=== PATIENT | female | born 1990 | race Asian ===

== ENCOUNTER → 2016-10-15 09:39 | Emergency (ER) | payer BC ==
[~2016-10-15 09:39] MED LIST: Iohexol 300* (CONTRAST) 10 ML SDV IV ONE; Ketorolac INJ* 30 MG/ML 1 ML VIAL IV PUSH ONE
[2016-10-15 11:08] LABS: Hematocrit 37 % (35-47); Hemoglobin 12.2 g/dl (12.0-16.0); Mean Corpuscular HGB Conc 33 g/dl (31-36); Mean Corpuscular Hemoglobin 31 pg (27-31); Mean Corpuscular Volume 93 fL (80-97); Mean Platelet Volume 10 um3 (7.4-10.4); Red Blood Count 3.98 10^6/ul (4.0-5.4); Red Cell Distribution Width 14 % (10.5-15); White Blood Count 6.8 10^3/ul (3.5-10.8)
[2016-10-15 11:21] LABS: ALT 8 U/L (7-52); AST 11 U/L (13-39); Albumin 4.5 g/dL (3.2-5.2); Alkaline Phosphatase 59 U/L (34-104); Anion Gap 5 mmol/L (2-11); BUN/Creatinine Ratio 17.6 (8-20); Blood Urea Nitrogen 9 mg/dL (6-24); C Reactive Protein 1.89 mg/L (< 5.00); CO2 Carbon Dioxide 24 mmol/L (22-32); Calcium 9.2 mg/dL (8.6-10.3); Chloride 106 mmol/L (101-111); EGFR Non-African American 146.9 (>60); Globulin 2.9 g/dL (2-4); Glucose 92 mg/dL (70-100); Lipase 46 U/L (11.0-82.0); Potassium 3.7 mmol/L (3.5-5.0); Sodium 135 mmol/L (133-145); Total Protein 7.4 g/dL (6.4-8.9)
--- NOTE | 2016-10-15 13:14 | RAD ---
INDICATION: Right lower quadrant pain COMPARISON: None TECHNIQUE: Axial source images were obtained from the hemidiaphragms to the symphysis pubis following administration of oral and intravenous contrast. 84 mL Omnipaque 300 was utilized. Coronal and sagittal reconstructed images were acquired. Lung bases: The lung bases are clear. Liver: The liver is normal in size. There are no masses. There is no ductal dilatation. Gallbladder: There are no calcified gallstones. There is no evidence of wall thickening or pericholecystic fluid. Spleen: The spleen is normal in size. There are no masses. Pancreas: There is no focal pancreatic mass or ductal dilatation. Adrenal glands: There is no evidence of adrenal mass. Kidneys: The kidneys are normal in size and position. There are prompt nephrograms and there is prompt excretion bilaterally. There are no renal parenchymal masses. There is no evidence of nephrolithiasis. Adenopathy: There is no evidence of adenopathy by size criteria. Fluid collections: There are no free or localized fluid collections. Vessels:There are no significant atherosclerotic changes involving the aorta. There is no focal aneurysm. The iliac vessels are normal in caliber. The IVC appears normal. GI tract: There are no acute CT bowel findings. There is no obstruction. The stomach and small bowel appear normal. The lower GI tract is remarkable for a large amount retained stool and colonic redundancy. The cecum, ileocecal valve, and terminal ileum appear normal. The appendix is not well evaluated due to posterior fat planes but there is no dilated tubular structure in the right lower quadrant and there is no periappendiceal inflammatory change. Suggest correlation with the clinical presentation for acute appendicitis and if this remains a differential consideration, suggest surgical referral. Pelvic organs: The uterus and adnexa appear normal. Incidental note is made of an IUD Bladder: There are no bladder masses. Abdominal and pelvic soft tissues: The extraperitoneal abdominal and pelvic soft tissues appear normal.. Osseous structures: There are no acute osseous findings. Other: None IMPRESSION: NO ACUTE CT FINDINGS. NO MASS OR INFLAMMATORY CHANGES (SEE ABOVE).
--- NOTE | 2016-10-15 15:00 | RAD ---
Indication: Pelvic pain. Real-time sonography of the pelvis was performed. The uterus measures 8.5 x 4.8 x 6.0 cm. Endometrial echo measures 2 mm[address]. The IUD string is noted in the lower uterine segment. Shadowing echogenic foci is noted on the transverse images suggesting an IUD is in appropriate location. Right ovary measures 4.1 x 2.8 x 3.2 cm. Left ovary measures 3.9 x 2.7 x 3.4 cm. Follicle is noted in the left ovary. IMPRESSION: No adnexal masses are noted. IUD appears to BE in appropriate position.
[2016-10-15 15:48] VITALS: BP 117/62
--- NOTE | 2016-10-15 17:40 | ED ---
Julio Lara Alfonso, scribed for Bhupinder Gonsalves MD on 10/15/16 at 1014 . Abdominal Pain/Female - HPI Summary HPI Summary: This patient is a 26 year old F presenting to [facility] accompanied by and daughter with a chief complaint of RLQ abdominal pain since one month ago. She reports the pain has been worse since 2 days ago. The pain radiates to her back. The CC is described as sharp. Pt rates the pain 6/10 in severity. Symptoms aggravated by eating and alleviated by nothing. Pt reports fever. Pt denies N/V, chills, and dysuria. LNMP on 09/22/16. Pt last ate 2 hours GRIDDLE COOK. Denies PMHx and PSHx. - History of Current Complaint Chief Complaint: EDAbdPain Stated Complaint: RT SIDE ABD PAIN Time Seen by Provider: 10/15/16 09:54 Hx Obtained From: Patient Hx Last Menstrual Period: 09/22/16 Onset/Duration: Gradual Onset, Lasting Weeks - One month, Worse Since - 2 days ago Timing: Constant Severity Initially: Moderate Severity Currently: Moderate Pain Intensity: 6 Pain Scale Used: 0-10 Numeric Location: Discrete At: RLQ Radiates: Yes Radiates to: Back Character: Sharp Aggravating Factor(s): Food Alleviating Factor(s): Nothing Associated Signs and Symptoms: Positive: Fever, Other: - Negative N/V, chills, and dysuria Allergies/Adverse Reactions: Allergies Allergy/AdvReac Type Severity Reaction Status Date / Time No Known Allergies Allergy Verified 05/09/14 09:38 PMH/Surg Hx/FS Hx/Imm Hx Endocrine/Hematology History: Denies: Hx Diabetes, Hx Thyroid Disease Cardiovascular History: Denies: Hx Hypertension Respiratory History: Denies: Hx Asthma, Hx Chronic Obstructive Pulmonary Disease (COPD) GI History: Denies: Hx Ulcer Infectious Disease History: No Infectious Disease History: Denies: Hx Clostridium Difficile, Hx Hepatitis, Hx Human Immunodeficiency Virus (HIV), Hx of Known/Suspected MRSA, Hx Shingles, Hx Tuberculosis, Traveled Outside the [place] in Last 30 Days - Family History Known Family History: Negative: Cardiac Disease - Social History Alcohol Use: None Substance Use Type: Reports: None Smoking Status (MU): Never Smoked Tobacco Have You Smoked in the Last Year: No Review of Systems Positive: Fever. Negative: Chills Positive: Abdominal Pain - RLQ sharp worse since 2 days ago. Negative: Vomiting , Nausea Negative: dysuria All Other Systems Reviewed And Are Negative: Yes Physical Exam - Summary Physical Exam Summary: VITAL SIGNS: Reviewed. GENERAL: Patient is a well-developed and nourished female who is lying comfortable in the stretcher. Patient is not in any acute respiratory distress. HEAD AND FACE: Normocephalic and atraumatic. EYES: PERRLA, EOMI x 2, No injected conjunctiva. EARS: Hearing grossly intact. Ear canals and tympanic membranes are WNL. MOUTH: Oropharynx within normal limits. NECK: Supple, trachea is midline, no adenopathy, no JVD. CHEST: Symmetric, no tenderness at palpation LUNGS: Clear to auscultation bilaterally. No wheezing or crackles. CVS: RRR, S1 and S2 present, no murmurs or gallops appreciated. ABDOMEN: RLQ tenderness. No signs of distention. Positive bowel sounds. No rebound no guarding, and no masses palpated. No abdominal bruit or pulsations. EXTREMITIES: FROM in all major joints, no edema, no cyanosis or clubbing. NEURO: Alert and oriented x 3. No acute neurological deficits. Speech is normal. SKIN: Dry and warm Triage Information Reviewed: Yes Vital Signs On Initial Exam: Initial Vitals Temp Pulse Resp BP Pulse Ox 98.7 F 90 20 114/61 97 10/15/16 09:44 10/15/16 09:44 10/15/16 09:44 10/15/16 09:44 10/15/16 09:44 Vital Signs Reviewed: Yes Diagnostics - Vital Signs Vital Signs Temp Pulse Resp BP Pulse Ox 10/15/16 10:01 99.7 F 100 16 124/68 100 10/15/16 09:44 98.7 F 90 20 114/61 97 - Laboratory Lab Results: Lab Results 10/15/16 10/15/16 10/15/16 Range/Units 10:47 10:47 10:47 WBC 6.8 (3.5-10.8) 10^3/ul RBC 3.98 L (4.0-5.4) 10^6/ul Hgb 12.2 (12.0-16.0) g/dl Hct 37 (35-47) % MCV 93 (80-97) fL MCH 31 (27-31) pg MCHC 33 (31-36) g/dl RDW 14 (10.5-15) % Plt Count 250 (150-450) 10^3/ul MPV 10 (7.4-10.4) um3 Neut % (Auto) 57.1 (38-83) % Lymph % (Auto) 31.8 (25-47) % [place] % (Auto) 6.5 (1-9) % Eos % (Auto) 3.7 (0-6) % Baso % (Auto) 0.9 (0-2) % Absolute Neuts (auto) 3.9 (1.5-7.7) 10^3/ul Absolute Lymphs (auto) 2.1 (1.0-4.8) 10^3/ul Absolute Monos (auto) 0.4 (0-0.8) 10^3/ul Absolute Eos (auto) 0.3 (0-0.6) 10^3/ul Absolute Basos (auto) 0.1 (0-0.2) 10^3/ul Absolute Nucleated RBC 0 10^3/ul Nucleated RBC % 0.1 Sodium 135 (133-145) mmol/L Potassium 3.7 (3.5-5.0) mmol/L Chloride 106 (101-111) mmol/L Carbon Dioxide 24 (22-32) mmol/L Anion Gap 5 (2-11) mmol/L BUN 9 (6-24) mg/dL Creatinine 0.51 (0.51-0.95) mg/dL Est GFR ( Amer) 189.0 (>60) Est GFR (Non-Af Amer) 146.9 (>60) BUN/Creatinine Ratio 17.6 (8-20) Glucose 92 (70-100) mg/dL Lactic Acid 1.0 (0.5-2.0) mmol/L Calcium 9.2 (8.6-10.3) mg/dL Total Bilirubin 0.50 (0.2-1.0) mg/dL AST 11 L (13-39) U/L ALT 8 (7-52) U/L Alkaline Phosphatase 59 (34-104) U/L C-Reactive Protein 1.89 (< 5.00) mg/L Total Protein 7.4 (6.4-8.9) g/dL Albumin 4.5 (3.2-5.2) g/dL Globulin 2.9 (2-4) g/dL Albumin/Globulin Ratio 1.6 (1-3) Lipase 46 (11.0-82.0) U/L Beta HCG, Quant < 0.60 mIU/mL Result Diagrams: 10/15/16 10:47 10/15/16 10:47 Lab Statement: Any lab studies that have been ordered have been reviewed, and results considered in the medical decision making process. - CT CT A/P CT Interpretation Completed By: Radiologist - NO ACUTE CT FINDINGS. NO MASS OR INFLAMMATORY CHANGE - Additional Comments Diagnostic Additional Comments: Transvaginal US: No adnexal masses are noted. IUD appears to BE in appropriate position. Re-Evaluation - Re-Evaluation First Eval Re-Evaluation Time: 13:45 Change: Improved Comment: Patient reports her symptoms have improved in the ED course. Abdominal Pain Fem Course/Dx - Course Course Of Treatment: This patient is a 26 year old F presenting to [facility] accompanied by and daughter with a chief complaint of RLQ abdominal pain since one month ago. She reports the pain has been worse since 2 days ago. The pain radiates to her back. The CC is described as sharp. Pt rates the pain 6 /10 in severity. Symptoms aggravated by eating and alleviated by nothing. Pt reports fever. Pt denies N/V, chills, and dysuria. LNMP on 09/22/16. Pt last ate 2 hours GRIDDLE COOK. Denies PMHx and PSHx. Test results without significant abnormalities. CT A/P reveals NO ACUTE CT FINDINGS. NO MASS OR INFLAMMATORY CHANGE. We decide to do CT to rule out appendicitis because of her RLQ pain. All test results negative, thus I decided to a pelvic US to r/o ovarian cyst or torsion. Test results of US are No adnexal masses are noted IUD appears to BE in appropriate position. The patient was given Toradol for the pain and her symptoms resolved. Pt is feeling much improved. I offered a pelvic exam but patient declined since she has no vaginal bleeding or discharge. She also denies any urinary symptoms. I discussed all the findings and test results with the patient. Patient was instructed to return to the emergency room immediately if any of the symptoms return or worsens. Plan of care was discussed with the patient and understands and agrees. All questions were answered at patient satisfaction. There were no further complaints or concerns. Lung exam before discharge: CTA B/L. Good air exchange. No wheezing or crackles heard. CVS: S1 and S2 present. No murmurs appreciated. Patient is alert and oriented x 3. Patient is hemodynamically stable. Patient will be discharged home with follow up PCP in the next 2-3 days - Diagnoses Differential Diagnosis: Positive: Appendicitis, Bowel Obstruction, Constipation , Ovarian Cyst Provider Diagnoses: Abdominal pain Discharge - Discharge Plan Condition: Stable Disposition: HOME Patient Education Materials: Acute Abdominal Pain (ED) Referrals: [facility] [place] PHYSICIAN REFERRAL [Outside] - 3 Days The documentation as recorded by the Julio bhandari Alfonso accurately reflects the service I personally performed and the decisions made by , Bhupinder Gonsalves MD.
== END | disposition home or self-care (01) ==
LOC: ED 09:39
DX: R10.31 Right lower quadrant pain (principal); R50.9 Fever, unspecified; Z32.02 Encounter for pregnancy test, result negative
CPT/HCPCS: 36415; 74177; 76830; 80053; 83605; 83690; 84702; 85025; 86140; 96374; 99283; J1885; Q9967

== ENCOUNTER 2017-10-24 23:40 | Inpatient (IN) | payer OTHER ==
--- NOTE | 2017-10-25 00:03 | HP ---
General Information - General Information Maternal Age: 27 Grav: 2 Para: 1 Estimated Due Date: 10/31/17 Determined By: LMP Gestational Age in Weeks/Days: 39w 1d Maternal Blood Type and Rh: O Positive - Results this Serology/RPR Result: Non-Reactive Rubella Result: Immune HBsAg Result: Negative HIV Result: Negative GBS Culture Result: Negative Past Medical History Delivery History: Hx Complicated Vaginal Delivery Delivery History Comment: partial 3rd degree lac, PPH with vaginal wall hematoma, required evacuation and repair in OR. Transfusion Pertinent Past Medical History: Non-Contributory Past Surgical History Comment: see above Pertinent Family History: Non-Contributory - Antepartal Records Antepartal Records: Reviewed, Complicated by: - anemia Review of Systems Constitutional: Uncomfortable CV Complaint: No Respiratory: Shortness of Breath: No Gastrointestinal: No Nausea/Vomiting Genitourinary: No Leaking Fluid Musculoskeletal: Contractions, Pressure Neurological: No Headache Movement: Normal Exam Allergies/Adverse Reactions: Allergies No Known Allergies Allergy (Verified 05/09/14 09:38) - Measurements Height: 5 ft 9 in Weight: 196 lb Body Mass Index (BMI): 28.9 Pre- Weight: 152 lb - Exam Breast: - - soft, no masses Extremities: Edema Heart: Normal Rhythm/Heart Sounds HEENT: No Significant Findings Lungs: Clear Bilaterally Reflexes: DTR 2+ Thyroid: No Thyromegaly - Ultrasound/Biophysical Profile Ultrasound Status: Not Done Targeted Exam Findings See L&D Outpatient Visit Provider Note for Findings: N/A Estimated Weight: 7.5 lbs Cervical Exam: 8cm Effacement: 100% Station: 0 Presenting Part: Vertex Membrane Status: Bulging EFM Findings - External Monitor Findings Baseline Heart Rate: 140 External Monitor Findings: Accelerations Present, No Pattern of Variable or Late Decelerations, Variability Moderate External Monitor Findings Comment: category 1 Contractions: Regular, Strong, 45-90 Seconds Contraction Frequency: every 3 minutes Assessment/Plan - Assessment IUP at 39 wks in active labor - Plan Plan: Admit - Anticipate Vaginal Delivery - Date/Time of Admission Date of Admission: 10/24/17 Time of Admission: 23:55
[2017-10-25 00:15] LABS: ABS Basophils 0.1 10^3/ul (0-0.2); ABS Eosinophils 0.2 10^3/ul (0-0.6); ABS Lymphocytes 1.7 10^3/ul (1.0-4.8); ABS Monocytes 0.8 10^3/ul (0-0.8); ABS Neutrophils 8.5 10^3/ul (1.5-7.7); ABS Nucleated RBC 0 10^3/ul; Eosinophil % 1.9 % (0-6); Hematocrit 35 % (35-47); Hemoglobin 11.6 g/dl (12.0-16.0); Lymphocyte % 15.4 % (25-47); Mean Corpuscular HGB Conc 34 g/dl (31-36); Mean Corpuscular Hemoglobin 30 pg (27-31); Mean Corpuscular Volume 90 fL (80-97); Mean Platelet Volume 8.9 um3 (7.4-10.4); Nucleated Red Blood Cells % 0; Platelet Count 198 10^3/ul (150-450); Red Blood Count 3.85 10^6/ul (4.00-5.40); Red Cell Distribution Width 17 % (10.5-15); White Blood Count 11.3 10^3/ul (3.5-10.8)
[2017-10-25] MEDS ORDERED: Oxytocin in LR* 20 UNITS/1,000 ML BAG IVPB ONE (00:25)
[2017-10-25] MEDS ORDERED: Glycerin ADULT SUPP PR PRN (01:49)
[2017-10-25] MEDS ORDERED: Ibuprofen TAB* 600 MG ONE ×2 (01:49→01:51)
[2017-10-25] MEDS ORDERED: Acetaminophen TAB* 325 MG PO PRN (01:49)
[2017-10-25] MEDS ORDERED: Witch Hazel PAD* JAR TOPICAL PRN (01:49)
[2017-10-25] MEDS ORDERED: Dibucaine 1% 28.35 GM TUBE PR PRN (01:49)
[2017-10-25] MEDS ORDERED: Oxytocin in LR* 20 UNITS/1,000 ML BAG IVPB SCH (02:00)
--- NOTE | 2017-10-25 02:02 | PROCNOTE ---
[facility] OB: Delivery Note - Nursery Level of Nursery: Regular/Bedside - Perineum Perineal Injury: 2nd Degree Perineal Repair: By Delivering Practioner - Additional Delivery Notes Additional Delivery Notes: SVB [facility] TONY over 2nd deg perineal laceration after 63 min of pushing. . Infant pink with stimulation. Placenta Frandy. FF with massage. IV with pitocin running. Laceraton repaired with 3-0 and 4-0 ccg under 1% lidocaine local. with Apgars 9/9, weight 8#13 oz, 4005 grams. Mother and baby in good condition. EBL 200cc
[2017-10-25] MEDS: Docusate CAP* 100 MG PO SCH ×3 (08:57→21:23)
[2017-10-25] MEDS: Ibuprofen TAB* 600 MG PO PRN (17:48)
[2017-10-26 06:16] LABS: Hematocrit 33 % (35-47); Hemoglobin 11.1 g/dl (12.0-16.0); Mean Corpuscular HGB Conc 34 g/dl (31-36); Mean Corpuscular Hemoglobin 31 pg (27-31); Mean Corpuscular Volume 90 fL (80-97); Mean Platelet Volume 8.9 um3 (7.4-10.4); Platelet Count 200 10^3/ul (150-450); Red Blood Count 3.66 10^6/ul (4.00-5.40); Red Cell Distribution Width 17 % (10.5-15); White Blood Count 11.5 10^3/ul (3.5-10.8)
[2017-10-26] MEDS: Ibuprofen TAB* 600 MG PO PRN (06:18)
[2017-10-26] MEDS ORDERED: Ferrous Gluconate TAB* 324 MG TAB PO SCH (09:00)
[2017-10-26] MEDS: Docusate CAP* 100 MG PO SCH ×3 (10:05→20:41)
[2017-10-27] MEDS: Ibuprofen TAB* 600 MG PO PRN ×2 (01:53→07:51)
[2017-10-27] MEDS: Docusate CAP* 100 MG PO SCH (07:50)
[2017-10-27 07:58] VITALS: BP 103/59
== END 2017-10-27 10:52 | disposition home or self-care (01) | DRG 560 ==
LOC: MCHOBOUT 23:40 → MCHOB 23:53
PROVIDERS: ADMIT Midwife; ATTEND Midwife
PROC: 10E0XZZ Delivery of Products of Conception, External Approach (ICD-10-PCS; principal; 2017-10-24)
PROC: 4A1HX4Z Monitoring of Products of Conception, Cardiac Electrical Activity, External Approach (ICD-10-PCS; 2017-10-24)
PROC: 0KQM0ZZ Repair Perineum Muscle, Open Approach (ICD-10-PCS; 2017-10-24)
DX: O70.1 Second degree perineal laceration during delivery (principal); Z37.0 Single live birth; Z3A.39 39 weeks gestation of pregnancy
CPT/HCPCS: 36415; 85025; 85027; 86850; 86900; 86901; A9270-GY

== ENCOUNTER 2019-05-18 19:39 | Emergency (ER) | payer OTHER ==
--- OUTSIDE RECORDS SUMMARY | 2019-05-18 20:10 | XMS REPORT | Continuity of Care Document ---
:1990 External Reference #:[id number] Author Name Lori Mckeon MD Address [address] [place] [address] Care Team Providers Name Role Phone Fernando Rai MD - Family Medicine Care Team Information Otologist Problems Description No Information Available Social History Type Date Description Comments Sex Unknown Cigarette Use Does Not Smoke Cigarettes ETOH Use Does Not Drink Alcohol Tobacco Use Start: Unknown Patient has never smoked Recreational Drug Use Does Not Use Drugs Smoking Status Reviewed: 04/28/19 Patient has never smoked Exercise Type/Frequency Does not exercise Seat Belt/Car Seat Always uses seat belt Allergies, Adverse Reactions, Alerts Description No Known Drug Allergies Medications Active Medications SIG Qnty Indications Ordering Provider Date Kyleena placed 02/22/2018 Unknown Medications Administered in Office Medication SIG Qnty Indications Ordering Provider Date PT SCRN Tbco Id as Non User Lori Mckeon MD 04/28/2019 Injection Immunizations CPT Code Status Date Vaccine Lot # [id number] Given 08/07/2017 Tetnus, Diptheria Toxoids And Acellular Pertussis, [id number] PT > 7Yrs Old [id number] Given 11/16/2014 Tetnus, Diptheria Toxoids And Acellular Pertussis, [id number] PT > 7Yrs Old Vital Signs Date Vital Result Comment 04/28/2019 9:52am BP Systolic 122 mmHg BP Diastolic 68 mmHg Height 69 inches 5'9" Weight 171.00 lb BMI (Body Mass Index) 25.2 kg/m2 Last Menstrual Period [id number] 2 Parity 2 03/31/2018 9:52am BP Systolic 118 mmHg BP Diastolic 64 mmHg Height 69 inches 5'9" Weight 178.00 lb BMI (Body Mass Index) 26.3 kg/m2 Last Menstrual Period [id number] 2 Parity 2 Results Description No Information Available Procedures Description No Information Available Medical Devices Description No Information Available Encounters Type Date Location Provider Dx Diagnosis Office Visit 04/28/2019 [facility] Lori Mckeon, Z01.411 Encntr for manager gyn exam 10:00a (general) (routine) w abnormal findings N92.1 Excessive and frequent menstruation with irregular cycle Assessments Date Code Description Provider 04/28/2019 Z01.411 Encounter for gynecological examination Lori Mckeon MD (general) (routine) with abnormal findings 04/28/2019 N92.1 Excessive and frequent menstruation with Lori Mckeon MD irregular cycle Plan of Treatment Future Appointment(s):05/31/2019 10:00 am - Lori Mckeon MD at [facility] 9:30 am - Ultrasounds at [facility] [place]04/28/2019 - Lori Mckeon MDZ01.411 Encounter for gynecological examination (general) (routine) with abnormal findingsComments:Maintain routine exercise and healthy diet. Try to get adequate sleep at night to improve your overall health (most people need ~8 hours!)Perform periodic breast exams at various times of the month to become familiar with your breast tissue so you are more likely to notice something abnormal. Return for annual exam in 1 year or earlier if concerns arise. Routine cervical cancer screening has changed. Pap smears are no longer done every year for low-risk women. A combination screening with both a pap smear ( looking for abnormal cells) and HPV testing are recommended every 3-5 years. It takes many years for normal cells to become abnormal and many more years for the abnormal cells to become cancer. Women should still come for a yearly visit and exam. When there is an abnormal pap smear or +HPV testing more frequent screening is recommended.N92.1 Excessive and frequent menstruation with irregular cycleComments:Return for ultrasound to confirm IUD placement and check for uterine anomalies. Hgb 11.9; recommended iron supplement. Functional Status Description No Information Available Mental Status Description No Information Available Referrals Description No Information Available
--- NOTE | 2019-05-18 21:57 | ED ---
Influenza-Like Illness - HPI Summary HPI Summary: 28-year-old female presents to the emergency department today complaining of one day of myalgia, cough, chills, fever. Patient's children were recently sick with an upper respiratory infection and now the patient believes she has this as well. She has no other complaints this time including no chest pain, shortness of breath, rash, nausea, vomiting, diarrhea. Patient has not taken any medication prior to arrival. Surgical history and family history is noncontributory. - History of Current Complaint Chief Complaint: EDFluSymptoms Time Seen by Provider: 05/18/19 21:43 Hx Obtained From: Patient Onset/Duration: Gradual Onset Associated Signs & Symptoms: Fever, Myalgia, Cough, Sore Throat, Nasal Congestion Related Hx: Possible Flu/Infectious Exposure - Allergy/Home Medications Allergies/Adverse Reactions: Allergies Allergy/AdvReac Type Severity Reaction Status Date / Time No Known Allergies Allergy Verified 10/25/17 00:12 Home Medications: Home Medications Vitamin Tablet 1 tab PO DAILY 10/25/17 [History Confirmed 10/25/17] Ibuprofen [Ibu] 600 mg PO Q6HR #60 tablet 10/27/17 [Rx] PMH/Surg Hx/FS Hx/Imm Hx Endocrine/Hematology History: Denies: Hx Diabetes, Hx Thyroid Disease Cardiovascular History: Denies: Hx Hypertension Respiratory History: Denies: Hx Asthma, Hx Chronic Obstructive Pulmonary Disease (COPD) GI History: Denies: Hx Ulcer Infectious Disease History: No Infectious Disease History: Denies: Hx Clostridium Difficile, Hx Hepatitis, Hx Human Immunodeficiency Virus (HIV), Hx of Known/Suspected MRSA, Hx Shingles, Hx Tuberculosis, Traveled Outside the [place] in Last 30 Days - Family History Known Family History: Negative: Cardiac Disease - Social History Alcohol Use: None Substance Use Type: Reports: None Smoking Status (MU): Never Smoked Tobacco Have You Smoked in the Last Year: No Review of Systems Positive: Fever, Fatigue Eyes: Negative ENT: Negative Cardiovascular: Negative Positive: Cough. Negative: Shortness Of Breath Gastrointestinal: Negative Genitourinary: Negative Musculoskeletal: Negative Skin: Negative Neurological/Mental Status: Negative Psychological: Normal All Other Systems Reviewed And Are Negative: Yes Physical Exam Triage Information Reviewed: Yes Vital Signs On Initial Exam: Initial Vitals Temp Pulse Resp BP Pulse Ox 98.2 F 116 18 122/73 96 05/18/19 19:41 05/18/19 19:41 05/18/19 19:41 05/18/19 19:41 05/18/19 19:41 Vital Signs Reviewed: Yes Appearance: Positive: Well-Appearing, No Pain Distress, Well-Nourished Skin: Positive: Warm, Skin Color Reflects Adequate Perfusion Eyes: Positive: EOMI, SHAW ENT: Positive: Hearing grossly normal Respiratory/Lung Sounds: Positive: Clear to Auscultation, Breath Sounds Present Cardiovascular: Positive: RRR, S1, S2 Abdomen Description: Positive: Nontender, Soft Bowel Sounds: Positive: Present Musculoskeletal: Positive: Strength/ROM Intact Neurological: Positive: Sensory/Motor Intact, Alert, Oriented to Person Place, Time, Speech Normal Psychiatric: Positive: Normal, Affect/Mood Appropriate AVPU Assessment: Alert Procedures - Sedation Patient Received Moderate/Deep Sedation with Procedure: No Diagnostics - Vital Signs Vital Signs Temp Pulse Resp BP Pulse Ox 05/18/19 19:41 98.2 F 116 18 122/73 96 - Laboratory Lab Statement: Any lab studies that have been ordered have been reviewed, and results considered in the medical decision making process. Flu Symptom Course/Dx - Course Course Of Treatment: pt evalauted. vitals noted. influenza serology returned showing positive influenza B. Pt declined use of tamiflu. Pt discharge with outpatient follow up. - Diagnoses Differential Diagnosis/HQI/PQRI: Positive: Bronchitis, Influenza, Pneumonia, Upper Respiratory Infection Provider Diagnoses: Influenza B Discharge ED - Sign-Out/Discharge Documenting (check all that apply): Patient Departure - Discharge Plan Condition: Stable Disposition: HOME Patient Education Materials: Influenza (ED) Referrals: Jimena Larose MD [Primary Care Provider] - 3 Days Additional Instructions: You were seen in the emergency department today and diagnosed with influenza. This is an upper respiratory virus which causes cough, muscle aches, fever, nausea, trouble breathing. Viruses are self-limiting and will go away on their own. Be sure to stay hydrated and rest. You may take pzik-[id number] decongestants as needed for your symptoms as well as NyQuil at night to improve sleep. Take Tylenol every 6 hours as needed for fever. Please see your primary care physician in 5 days for further evaluation and management. Please do not return to work or school until 24 hours after your fever breaks. Please return to the emergency department immediately if you develop any new or worsening symptoms. - Billing Disposition and Condition Condition: STABLE Disposition: Home
[2019-05-18 22:35] LABS: Influenza B Molecular POSITIVE (Negative)
[2019-05-19] VITALS: BP 121/72
== END 2019-05-19 | disposition home or self-care (01) ==
LOC: ED 19:39
DX: J10.1 Influenza due to other identified influenza virus with other respiratory manifestations (principal)
CPT/HCPCS: 99282

== ENCOUNTER 2022-08-18 04:37 | Inpatient (IN) ==
[2022-08-18] MEDS ORDERED: Oxytocin in LR 0 MILLI.UNIT/0 ML BAG IV ONE (05:20)
[2022-08-18 05:21] LABS: Hematocrit 32.6 % (35-45); Hemoglobin 11.3 g/dL (11.5-14.3); Mean Corpuscular Hemoglobin 30.1 pg (27-33); Mean Corpuscular Hgb Conc 34.5 g/dL (31-36); Mean Corpuscular Volume 87.3 fL (80-97); Mean Platelet Volume 9.6 fL (7.5-11.2); Platelet Count 230 10^3/uL (150-450); Red Blood Count 3.73 10^6/uL (3.63-4.92); Red Cell Distribution Width 14.8 % (12-17); White Blood Count 10.7 10^3/uL (3.8-11.8)
[2022-08-18] MEDS ORDERED: Dibucaine 1% OINT 28.35 GM TUBE ONE (05:26)
[2022-08-18] MEDS ORDERED: Promethazine INJ(RESTRICTED) 25 MG/ML 1 ml VIAL IV PRN (05:59)
[2022-08-18] MEDS ORDERED: Lactated Ringers 1000 ml BAG 1,000 ML IV ONE (05:59)
[2022-08-18] MEDS ORDERED: Nalbuphine 10 MG/ML 1 ML VIAL IV PRN (05:59)
[2022-08-18] MEDS ORDERED: Buffered Lidocaine 1% SYRIN 1 ml INTRADERM ONE (05:59)
[2022-08-18] MEDS ORDERED: Lactated Ringers 1000 ml BAG 1,000 ML IV SCH ×2 (06:00→07:00)
[2022-08-18 06:06] LABS: Urine Appearance Turbid; Urine Bilirubin Negative (Negative); Urine Blood 1+ (Negative); Urine Color Yellow; Urine Glucose Negative (Negative); Urine Ketones Negative (Negative); Urine Nitrite Negative (Negative); Urine Protein 1+(30 mg/dL) (Negative); Urine Specific Gravity 1.029 (1.002-1.030); Urine Urobilinogen Negative (Negative)
[2022-08-18] MEDS ORDERED: Glycerin ADULT 2.4 gm SUPP PR PRN (06:11)
[2022-08-18] MEDS ORDERED: Dibucaine 1% OINT 28.35 GM TUBE PR PRN (06:11)
[2022-08-18] MEDS ORDERED: Witch Hazel PAD JAR TOPICAL PRN (06:11)
[2022-08-18 06:16] LABS: Urine Benzodiazepine Screen None Detected (None Detect); Urine Cannabinoids Screen None Detected (None Detect); Urine Opiates Screen None Detected (None Detect)
[2022-08-18 06:26] LABS: Urine Bacteria Absent (Absent); Urine Red Blood Cell 2+(6-10/hpf) (Absent); Urine Squamous Epithelial Cell Present (Absent); Urine White Blood Cell 1+(6-10/hpf) (Absent)
[2022-08-18] MEDS ORDERED: Lidocaine 1% MPF 5 ML VIAL INJ ONE (06:47)
[2022-08-19 06:41] LABS: ABS Eosinophils 0.1 10^3/uL (0.0-0.5); ABS Lymphocytes 3.1 10^3/uL (1.0-4.8); ABS Monocytes 0.7 10^3/uL (0.0-0.9); ABS Neutrophils 7.5 10^3/uL (1.5-7.6); Eosinophil % 1.2 %; Hematocrit 32.1 % (35-45); Lymphocyte % 26.8 %; Mean Corpuscular Hemoglobin 30.2 pg (27-33); Mean Corpuscular Hgb Conc 34.2 g/dL (31-36); Mean Corpuscular Volume 88.4 fL (80-97); Mean Platelet Volume 9.4 fL (7.5-11.2); Platelet Count 246 10^3/uL (150-450); Red Blood Count 3.63 10^6/uL (3.63-4.92); Red Cell Distribution Width 14.8 % (12-17); White Blood Count 11.4 10^3/uL (3.8-11.8)
[2022-08-20 07:52] VITALS: BP 114/69
== END 2022-08-20 10:48 | disposition home or self-care (01) | DRG 560 ==
LOC: MCHOBOUT 04:37 → MCHOB 05:01
PROVIDERS: ADMIT Advanced Practice Midwife; ATTEND Advanced Practice Midwife